=== PATIENT | male | born 1925 | race Caucasian/White ===

== ENCOUNTER 2017-04-16 12:50 | Emergency (ER) | payer MEDICARE ==
[~2017-04-16 12:50] MED LIST: DOCU100S PO; METO25 PO; MIDO5 PO; NAME10TA PO; ULTR50TA PO
[2017-04-16 13:00] VITALS: BP 156/79; PULSE 90; RESP 16; TEMP 97.9; O2SAT 96
--- NOTE | 2017-04-16 13:19 | PD ---
HPI Chief Complaint: fall Time Seen by Provider: 13:12 Travel History International Travel<30 days: No Contact w/Intl Traveler<30days: No History of Present Illness HPI 89-year-old male presents to the emergency department via EMS for evaluation after he fell. Patient resides prabhjot wolff apparently had escaped. He was shuffling down the road when he fell hitting his face and head against the concrete. According to bystanders and the patient, there was no LOC. Upon my evaluation, the patient is alert. He is oriented to person and time, but does not know he is at the hospital. Patient denies any pain at this time. He does have small abrasions noted to the face with nasal deformity and bleeding. Patient denies taking it any anticoagulants. Last inpatient Hospitalist March 23, 2016 he was non-intracranial that time. We'll contact him prabhjot wolff for further medical history. The patient states that he lost his balance and fell. He denies any headache, chest pain, shortness breath, abdominal pain, nausea, vomiting, diarrhea. Patient denies any neck or back pain. According to chart, he has history of dementia, CAD, renal insufficiency , hypertension, hyperlipidemia, CABG, lymphoma. Severity is moderate. PFSH Past Medical History Asthma: No Blood Disorders: No Anxiety: No Depression: Yes Heart Rhythm Problems: Yes Cancer: Yes (THROAT) Cardiovascular Problems: Yes High Cholesterol: Yes Chemotherapy: Yes Chest Pain: No Congestive Heart Failure: Yes COPD: No Cerebrovascular Accident: No Dementia: Yes Endocrine: No Genitourinary: No Hypertension: Yes Immune Disorder: No Musculoskeletal: No Neurologic: Yes Psychiatric: No Reproductive: No Respiratory: No Immunizations Current: No Migraines: Yes ("ONCE IN A GREAT WHILE") Radiation Therapy: No Seizures: No Sleep Apnea: No Triglycerides - High: Yes Ulcer: Yes Past Surgical History Abdominal Surgery: Yes (HERNIA REPAIR) Cardiac Surgery: Yes (CABG 15 YEARS AGO) Ear Surgery: No Endocrine Surgery: No Eye Surgery: No Genitourinary Surgery: No Gynecologic Surgery: No Oral Surgery: No Thoracic Surgery: No Social History Alcohol Use: No Tobacco Use: No Substance Use: No Allergies-Medications (Allergen,Severity, Reaction): Coded Allergies: No Known Allergies (Unverified Adverse Reaction, Unknown, 04/16/17) Reported Meds & Prescriptions Reported Meds & Active Scripts Active Active Prescriptions or Reported Medications Unobtainable Review of Systems Except as stated in HPI: all other systems reviewed are Neg Physical Exam Narrative GENERAL: Well-nourished, well-developed male patient, afebrile. SKIN: Focused skin assessment warm/dry. Patient is a possible superficial abrasions to face. HEAD: Normocephalic. ENT: Mucosa pink and moist. No erythema or exudates. No uvular edema. No uvular , palatal, or tonsillar deviation. Airway patent. Dried blood noted to bilateral nares. No septal hematoma noted on exam. Bilateral tympanic membranes are clear without erythema or perforation. EYES: No scleral icterus. No injection or drainage. NECK: Supple, trachea midline. No JVD or lymphadenopathy. CARDIOVASCULAR: Regular rate and rhythm without murmurs, gallops, or rubs. RESPIRATORY: Breath sounds equal bilaterally. No accessory muscle use. Lungs sounds are clear to auscultation. GASTROINTESTINAL: Abdomen soft, non-tender, nondistended. MUSCULOSKELETAL: No cyanosis, or edema. BACK: Nontender without obvious deformity. No CVA tenderness. Patient had a c- collar on. This remains in place. Data Data Last Documented VS Vital Signs Date Time Temp Pulse Resp B/P (MAP) Pulse Ox O2 Delivery O2 Flow Rate FiO2 04/16/17 14:44 86 18 184/97 (126) 96 Room Air 04/16/17 13:[address] Brain W/O Iv Contrast(Rout) (04/16/17 ) Ct Cerv Spine W/O Contrast (04/16/17 ) Ct Facial Bones W/O Iv Cont (04/16/17 ) Chest, Single Ap (04/16/17 ) Pelvis, Ap Only (Routine) (04/16/17 ) Tetanus/Diphtheria Tox Adult (Tetanus/Di (04/16/17 13:30) MDM Medical Decision Making Medical Screen Exam Complete: Yes Emergency Medical Condition: Yes Medical Record Reviewed: Yes Interpretation(s) CT brain - CONCLUSION: No bleed or other acute intracranial abnormality. Apparent right mastoiditis. No skull fracture seen. CT cervical spine - CONCLUSION: Degenerative changes as above. No fracture or acute malalignment of the cervical spine. CT facial bones - CONCLUSION: Severely comminuted and moderately displaced and depressed fracturing of the nose. Chest x-ray - CONCLUSION: Mild left base atelectasis. Pelvis X-ray - CONCLUSION: Intact pelvis. Differential Diagnosis Intracranial abnormality versus closed head injury versus facial fracture versus contusion versus abrasion versus laceration Narrative Course 89-year-old male presents to the emergency department for evaluation after a fall. CT of the brain, cervical spine, facial bones are ordered and pending. X -ray of the chest and pelvis are ordered and pending. Tetanus immunization is updated. CT of the brain shows no bleed or other acute intracranial abnormality. Apparent right mastoiditis. No skull fracture seen.. CT of the cervical spine shows Degenerative changes as above. No fracture or acute malalignment of the cervical spine. CT of the facial bones Severely comminuted and moderately displaced and depressed fracturing of the nose. X-ray of the chest Mild left base atelectasis. X-ray of the pelvis is intact. Patient's family is at bedside. They're instructed to follow ear nose and throat for nasal fracture. There is no evidence of mastoiditis on exam. Patient has no pain to palpation anterior exam is normal. Wounds are clean. There is no suturable lacerations. Diagnosis Primary Impression: Nasal bone fracture Qualified Codes: S02.2XXA - Fracture of nasal bones, initial encounter for closed fracture Additional Impression: Fall Qualified Codes: W19.XXXA - Unspecified fall, initial encounter Referrals: Ear / Nose / Throat Specialist call for appointment Patient Instructions: General Instructions, Nasal Fracture (ED) Additional Instructions: Ice for 20 minutes 4-5 times daily. Clean abrasions twice daily with soap and water and apply [id number] antibiotic limit. Follow-up with primary care physician and ENT physician. Return to the emergency department for any acute worsening of symptoms. Med/Other Pt SpecificInfo: No Change to Meds, Wound Care Scripts Unable to Obtain Active Prescriptions or Reported Meds Disposition: 01 DISCHARGE HOME Condition: Stable Breanna Benedict GAEL Apr 16, 2017 13:19
[2017-04-16] MEDS ORDERED: TETANUS/DIPHTHERIA TOXOID ADULT 0.5 ML VIAL IM ONE (13:30)
--- NOTE | 2017-04-16 13:59 | RADRPT ---
EXAM DATE/TIME: 04/16/2017 13:44 [facility] COMPARISON: No previous studies available for comparison. INDICATIONS : Pain post fall. MEDICAL HISTORY : Cardiac disorders. Hypertension. Dementia. SURGICAL HISTORY : None. ENCOUNTER: Initial ACUITY: 1 day PAIN SCORE: Non-responsive. LOCATION: pelvis. FINDINGS: A single frontal view of the pelvis demonstrates no evidence of fracture. The bony pelvic ring is in tact. Bony mineralization is normal. The soft tissues are intact. CONCLUSION: Intact pelvis. Obed Roger MD on April 16, 2017 at 13:56 Board Certified Radiologist. This report was verified electronically.
--- NOTE | 2017-04-16 14:00 | RADRPT ---
EXAM DATE/TIME: 04/16/2017 13:40 [facility] COMPARISON: CHEST SINGLE AP, March 22, 2016, 4:40. INDICATIONS : Pain post fall. MEDICAL HISTORY : Cardiac disorders. Hypertension. Dementia. SURGICAL HISTORY : CABG. ENCOUNTER: Initial ACUITY: 1 day PAIN SCORE: Non-responsive. LOCATION: Bilateral chest FINDINGS: There is mild left base atelectasis. No effusion/hemothorax demonstrated. No pneumothorax. No percept ible fracture of the visualized osseous structures. Heart size stable, within normal limits. Patient has had median sternotomy and CABG. CONCLUSION: Mild left base atelectasis. Obed Roger MD on April 16, 2017 at 13:57 Board Certified Radiologist. This report was verified electronically.
--- NOTE | 2017-04-16 14:10 | RADRPT ---
EXAM DATE/TIME: 04/16/2017 13:52 [facility] COMPARISON: CT BRAIN W/O CONTRAST, March 22, 2016, 5:18. INDICATIONS : Trauma, fall today. RADIATION DOSE: 47.91 CTDIvol (mGy) MEDICAL HISTORY : Dementia. Cardiovascular disease throat cancer, hypertension SURGICAL HISTORY : None. ENCOUNTER: Initial ACUITY: 1 day PAIN SCALE: Non-responsive LOCATION: Bilateral head TECHNIQUE: Multiple contiguous axial images were obtained of the head. Using automated exposure control and adj ustment of the mA and/or kV according to patient size, radiation dose was kept as low as reasonably a chievable to obtain optimal diagnostic quality images. DICOM format image data is available electro nically for review and comparison. FINDINGS: CEREBRUM: The ventricles are normal for age. No evidence of midline shift, mass lesion, hemorrhage or acute in farction. No extra-axial fluid collections are seen. POSTERIOR FOSSA: The cerebellum and brainstem are intact. The 4th ventricle is midline. The cerebellopontine angle i s unremarkable. EXTRACRANIAL: There is fluid in the right mastoid air cells. The fluid appears low attenuation and I don't see a te mporal bone fracture. SKULL: The calvaria is intact. No evidence of skull fracture. CONCLUSION: No bleed or other acute intracranial abnormality. Apparent right mastoiditis. No skull fracture seen. Obed Roger MD on April 16, 2017 at 14:07 Board Certified Radiologist. This report was verified electronically.
--- NOTE | 2017-04-16 14:25 | RADRPT ---
EXAM DATE/TIME: 04/16/2017 13:52 [facility] COMPARISON: CT CERVICAL SPINE W/O CONTRAST, March 22, 2016, 5:18. INDICATIONS : Trauma, fall today. RADIATION DOSE: 26.22 CTDIvol (mGy) MEDICAL HISTORY : Hypertension. Cardiovascular disease throat cancer SURGICAL HISTORY : None. ENCOUNTER: Initial ACUITY: 1 day PAIN SCALE: Non-responsive LOCATION: Bilateral neck TECHNIQUE: Volumetric scanning of the cervical spine was performed. Multiplanar reconstructions in the sagittal, coronal and oblique axial planes were performed. Using automated exposure control and adjustment o f the mA and/or kV according to patient size, radiation dose was kept as low as reasonably achievable to obtain optimal diagnostic quality images. DICOM format image data is available electronically f or review and comparison. FINDINGS: A 3 mm of degenerative retrolisthesis again seen at C3/C4. There is unchanged grade 1 degenerative an terolisthesis at C6 on C7. No fracture or acute appearing malalignment seen in the cervical spine. Moderate to severe disc space narrowing with uncovertebral and facet osteoarthritis seen at C3/C4, C4 /C5 and C5/C6. [id number] changes are seen at the other levels. . CONCLUSION: Degenerative changes as above. No fracture or acute malalignment of the cervical spine. Obed Roger MD on April 16, 2017 at 14:20 Board Certified Radiologist. This report was verified electronically.
--- NOTE | 2017-04-16 14:34 | RADRPT ---
EXAM DATE/TIME: 04/16/2017 13:52 [facility] COMPARISON: No previous studies available for comparison. INDICATIONS : Trauma, fall today. RADIATION DOSE: 65.27 CTDIvol (mGy) MEDICAL HISTORY : Cardiovascular disease. Hypertension. throat cancer SURGICAL HISTORY : None. ENCOUNTER: Initial ACUITY: 1 day PAIN SCORE: Non-responsive LOCATION: Bilateral face TECHNIQUE: Volumetric scanning of the facial bones was performed. Using automated exposure control and adjustme nt of the mA and/or kV according to patient size, radiation dose was kept as low as reasonably achiev able to obtain optimal diagnostic quality images. DICOM format image data is available electronicall y for review and comparison. FINDINGS: Severely comminuted fracture seen of the nose including the tip of the nasion, both sides of the nasa l arch and also the mid and anterior septum. Fracturing is moderately depressed and also leftward dis placed/deviated. There is blood in main paranasal sinuses, especially left maxillary. Other facial bones including the orbits and sinuses are intact. CONCLUSION: Severely comminuted and moderately displaced and depressed fracturing of the nose. Obed Roger MD on April 16, 2017 at 14:30 Board Certified Radiologist. This report was verified electronically.
[2017-04-16 14:44] VITALS: BP 184/97; PULSE 86; RESP 18; O2SAT 96
[2017-04-16] MEDS ORDERED: TYLE325T PO (16:04)
== END 2017-04-16 16:51 | disposition home or self-care (01) ==
LOC: NEPE 12:50
DX: S02.2XXA Fracture of nasal bones, initial encounter for closed fracture (principal); W19.XXXA Unspecified fall, initial encounter; Y92.480 Sidewalk as the place of occurrence of the external cause; F03.90 Unspecified dementia, unspecified severity, without behavioral disturbance, psychotic disturbance, mood disturbance, and anxiety; I25.10 Atherosclerotic heart disease of native coronary artery without angina pectoris; I50.9 Heart failure, unspecified; I10 Essential (primary) hypertension; N28.9 Disorder of kidney and ureter, unspecified; Z85.72 Personal history of non-Hodgkin lymphomas
CPT/HCPCS: 70450; 70486; 71010; 72125; 72170; 90471; 90714